=== PATIENT | female | born 1965 | race Caucasian/White ===

== ENCOUNTER 2019-09-02 09:13 | Emergency (ER) | payer OTHER ==
[~2019-09-02] VITALS: Ht 152.4 cm; Wt 67.1 kg
[2019-09-02 09:28] VITALS: BP 142/78
[2019-09-02] MEDS ORDERED: NEOSPORIN OINT. PKT 1 PACKET ONE (10:44)
== END 2019-09-02 11:15 | disposition home or self-care (01) ==
LOC: ED 10:30
DX: L03.011 Cellulitis of right finger (principal)
CPT/HCPCS: 10060; 99283